=== PATIENT | male | born 1980 | race Caucasian/White ===

== ENCOUNTER 2021-06-03 12:10 | Day surgery (SDC) | payer OTHER ==
[2021-06-03] MEDS ORDERED: Depo-Medrol 40 MG/ML IM ONE (12:11)
[2021-06-03] MEDS ORDERED: LIDOCAINE HCL 2% 100 MG/5 ML IJ ONE (12:11)
[2021-06-03] MEDS ORDERED: Lactated Ringers 1,000 ML IV ONE (16:07)
[2021-06-03] MEDS ORDERED: DIPRIVAN 200 MG/20 ML IV ONE ×2 (17:02→17:23)
--- NOTE | 2021-06-03 19:53 | XRAY ---
Indication: Bilateral T5-T8 MBB. Intraoperative fluoroscopy provided for 25 seconds. Single digital spot image submitted for interpretation demonstrates posterior needle tips projecting over the expected left and right T5-T8 nerve roots. Correlate with intraoperative findings/report.
--- NOTE | 2021-06-04 08:57 | XRAY ---
25 seconds fluoroscopy time in surgery for bilateral T5-T8 MBB.
== END 2021-06-03 17:45 | disposition home or self-care (01) ==
LOC: SDC-PAIN 12:10
PROVIDERS: ATTEND Psychiatry & Neurology Pain Medicine
DX: M47.814 Spondylosis without myelopathy or radiculopathy, thoracic region (principal); Z79.899 Other long term (current) drug therapy
CPT/HCPCS: 64490; 64491; 64492; 72072; 77002; J1030; J2704

== ENCOUNTER 2024-04-11 10:54 | Day surgery (SDC) | payer BC ==
[2024-04-11] MEDS ORDERED: LIDOCAINE HCL 1% 50 MG/5 ML VL PF IJ ONE (10:55)
[2024-04-11] MEDS ORDERED: Sodium Chloride 0.9(Preservative Free) 10 ML IJ ONE (10:55)
[2024-04-11] MEDS ORDERED: Decadron 4 MG INJ IV ONE (10:55)
[2024-04-11] MEDS ORDERED: DIPRIVAN 200 MG/20 ML IV ONE (12:31)
[2024-04-11] MEDS ORDERED: MORPHINE SULFATE 2 MG INJ ONE ×2 (12:43→12:54)
[2024-04-11] MEDS ORDERED: Lactated Ringers 1,000 ML IV ONE (14:19)
--- NOTE | 2024-04-11 14:34 | XRAY ---
Indication: Right L4-S1 transforaminal IMAN. Intraoperative fluoroscopy provided for 18 seconds. 4 digital spot image submitted for interpretation demonstrates posterior needle tips projecting over the expected right L4 and L5 nerve roots. Small amount of contrast injected for needle tip placement. Correlate with intraoperative findings/report.
--- NOTE | 2024-04-11 14:34 | XRAY ---
Indication: Right piriformis injection Intraoperative fluoroscopy provided for 7 seconds. Single digital spot image submitted for interpretation demonstrates posterior needle tip projecting over right piriformis. Small amount of contrast injected for needle tip placement. Correlate with intraoperative findings/report.
--- NOTE | 2024-04-11 14:38 | XRAY ---
18 seconds of fluoroscopy was used in surgery for a right L4-S1 transforaminal IMAN.
--- NOTE | 2024-04-11 14:38 | XRAY ---
7 seconds of fluoroscopy was used in surgery for a right piriformis injection.
== END 2024-04-11 13:18 ==
LOC: SDC-PAIN 10:54
PROVIDERS: ATTEND Psychiatry & Neurology Pain Medicine
DX: M54.16 Radiculopathy, lumbar region (principal); M79.18 Myalgia, other site
CPT/HCPCS: 20552; 64483; 64484; 72100; 72170; 77002; 77003; J1100; J2001; J2270; J2704; Q9966

== ENCOUNTER 2024-05-31 11:03 | Day surgery (SDC) | payer BC ==
[2024-05-31] MEDS ORDERED: OXYCODONE-ACETAMINOPHEN 10-325 PO ONE (11:04)
[2024-05-31] MEDS ORDERED: BUPIVACAINE 0.5% VIAL IJ ONE (11:04)
[2024-05-31] MEDS ORDERED: DIPRIVAN 200 MG/20 ML IV ONE ×2 (12:33→12:48)
--- NOTE | 2024-05-31 15:01 | XRAY ---
Indication: Left C4-C6 MBB. Intraoperative fluoroscopy provided for 17 seconds. 2 digital spot image submitted for interpretation demonstrates posterior needle tips projecting over the expected left C4-C6 nerve roots. Correlate with intraoperative findings/report.
--- NOTE | 2024-05-31 16:44 | XRAY ---
17 seconds of fluoroscopy was used in surgery for a left C4-C6 MBB.
== END 2024-05-31 13:17 | disposition home or self-care (01) ==
LOC: SDC-PAIN 11:03
PROVIDERS: ATTEND Psychiatry & Neurology Pain Medicine
DX: M47.812 Spondylosis without myelopathy or radiculopathy, cervical region (principal)
CPT/HCPCS: 64490; 64491; 72040; 77002; J2704; A9270-GY

== ENCOUNTER 2024-07-11 11:13 | Day surgery (SDC) | payer BC ==
[2024-07-11] MEDS ORDERED: BUPIVACAINE 0.5% VIAL IJ ONE (11:14)
[2024-07-11] MEDS ORDERED: DIPRIVAN 200 MG/20 ML IV ONE (12:33)
[2024-07-11] MEDS ORDERED: NORCO 10-325 MG PO PRN (12:55)
--- NOTE | 2024-07-11 14:00 | XRAY ---
Indication: Left C4-C6 MBB. Intraoperative fluoroscopy provided for 13 seconds. 2 digital spot image submitted for interpretation demonstrates posterior needle tips projecting over expected left C4-C6 nerve roots. Correlate with intraoperative findings/report.
--- NOTE | 2024-07-11 14:03 | XRAY ---
13 seconds of fluoroscopy was used in surgery for a left C4-C6 MBB.
== END 2024-07-11 13:04 | disposition home or self-care (01) ==
LOC: SDC-PAIN 11:13
PROVIDERS: ATTEND Psychiatry & Neurology Pain Medicine
DX: M47.812 Spondylosis without myelopathy or radiculopathy, cervical region (principal)
CPT/HCPCS: 64490; 64491; 72040; 77002; J2704; A9270-GY

== ENCOUNTER 2024-09-05 13:32 | Day surgery (SDC) | payer BC ==
[2024-09-05] MEDS ORDERED: Lactated Ringers 500 ML IV ONE (13:42)
[2024-09-05] MEDS ORDERED: propofoL IV ONE ×2 (15:07→15:15)
[2024-09-05] MEDS ORDERED: Versed 2 MG/2 ML Injection ONE (15:10)
[2024-09-05] MEDS ORDERED: MORPHINE SULFATE 2 MG INJ ONE ×2 (15:44→16:04)
--- NOTE | 2024-09-05 16:28 | XRAY ---
Indication: Left C4-C6 RFA. Intraoperative fluoroscopy provided for 25 seconds. 5 digital spot images submitted for interpretation demonstrates posterior needle tips projecting over expected left C4-C6 nerve roots. Correlate with intraoperative findings/report.
--- NOTE | 2024-09-05 16:30 | XRAY ---
25 seconds of fluoroscopy was used in surgery for a left C4-C6 RFA.
== END 2024-09-05 16:19 | disposition home or self-care (01) ==
LOC: SDC-PAIN 13:32
PROVIDERS: ATTEND Psychiatry & Neurology Pain Medicine
DX: M47.812 Spondylosis without myelopathy or radiculopathy, cervical region (principal)
CPT/HCPCS: 72040; 77002; J2250; J2270; J2704

== ENCOUNTER 2025-04-24 11:57 | Day surgery (SDC) | payer BC ==
[2025-04-24] MEDS ORDERED: NON-FORMULARY ITEM ONE (11:58)
[2025-04-24] MEDS ORDERED: [UNRECOGNIZED DRUG - OTHER] PO ONE (11:58)
[2025-04-24] MEDS ORDERED: LIDOCAINE HCL 2% 100 MG/5 ML IJ ONE (11:58)
[2025-04-24] MEDS ORDERED: propofoL IV ONE ×2 (14:03→14:15)
--- NOTE | 2025-04-24 16:50 | XRAY ---
Indication: Right C4-C6 MBB. Intraoperative fluoroscopy provided for 19 seconds. 3 digital spot image submitted for interpretation demonstrates posterior needle tips projecting over expected right C4-C6 nerve roots. Correlate with intraoperative findings/report.
[2025-04-24] MEDS ORDERED: Lactated Ringers 1,000 ML IV ONE (17:52)
--- NOTE | 2025-04-24 19:13 | XRAY ---
19 seconds of fluoroscopy were used in surgery for a right C4-C6 MBB.
== END 2025-04-24 14:56 | disposition home or self-care (01) ==
LOC: SDC-PAIN 11:57
PROVIDERS: ATTEND Psychiatry & Neurology Pain Medicine
DX: M47.812 Spondylosis without myelopathy or radiculopathy, cervical region (principal)

== ENCOUNTER 2025-05-22 10:39 | Day surgery (SDC) | payer BC ==
[2025-05-22] MEDS ORDERED: BUPIVACAINE 0.5% VIAL IJ ONE (10:40)
[2025-05-22] MEDS ORDERED: propofoL IV ONE ×2 (13:15→13:24)
[2025-05-22] MEDS ORDERED: Lactated Ringers 1,000 ML IV ONE (14:04)
[2025-05-22] MEDS ORDERED: [UNRECOGNIZED DRUG - OTHER] PO ONE (14:15)
--- NOTE | 2025-05-22 14:59 | XRAY ---
Indication: Right C4-C6 MBB. Intraoperative fluoroscopy provided for 25 seconds. 2 digital spot image submitted for interpretation demonstrates posterior needle tips projecting over expected right C4-C6 nerve roots. Correlate with intraoperative findings/report.
--- NOTE | 2025-05-22 17:09 | XRAY ---
25 seconds of fluoroscopy was used in surgery for a right C4-C6 MBB.
== END 2025-05-22 14:15 | disposition home or self-care (01) ==
LOC: SDC-PAIN 10:39
PROVIDERS: ATTEND Psychiatry & Neurology Pain Medicine
DX: M47.812 Spondylosis without myelopathy or radiculopathy, cervical region (principal)

== ENCOUNTER 2025-06-19 10:06 | Day surgery (SDC) | payer BC ==
[2025-06-19] MEDS ORDERED: LIDOCAINE HCL 1% 50 MG/5 ML VL IJ ONE (10:07)
[2025-06-19] MEDS ORDERED: BUPIVACAINE 0.5% VIAL IJ ONE (10:07)
[2025-06-19] MEDS ORDERED: propofoL IV ONE ×2 (12:35→12:44)
[2025-06-19] MEDS ORDERED: Versed 2 MG/2 ML Injection ONE (12:37)
--- NOTE | 2025-06-19 13:24 | XRAY ---
Indication: Right C4-C6 RFA. Intraoperative fluoroscopy provided for 28 seconds. 2 digital spot image submitted for interpretation demonstrates posterior needle tips projecting over expected right C4-C6 nerve roots. Correlate with intraoperative findings/report.
--- NOTE | 2025-06-19 13:30 | XRAY ---
28 seconds of fluoroscopy was used in surgery for a right C4-C6 RFA.
[2025-06-19] MEDS ORDERED: OXYCODONE-ACETAMINOPHEN 10-325 PO PRN (13:37)
[2025-06-19] MEDS ORDERED: OXYCODONE-ACETAMINOPHEN 10-325 ONE (13:40)
[2025-06-19] MEDS ORDERED: Lactated Ringers 1,000 ML IV ONE (13:44)
== END 2025-06-19 13:50 | disposition home or self-care (01) ==
LOC: SDC-PAIN 10:06
PROVIDERS: ATTEND Psychiatry & Neurology Pain Medicine
DX: M47.812 Spondylosis without myelopathy or radiculopathy, cervical region (principal)